=== PATIENT | female | born 1975 | race Caucasian/White ===

== ENCOUNTER 2018-05-11 10:36 | Day surgery (SDC) | payer OTHER ==
[2018-05-09 11:55] VITALS: BMI 45.3
[2018-05-11 10:56] LABS: HEMATOCRIT 37.2 % (32.4-45.2); HEMOGLOBIN 12.5 GM/dL (10.7-15.3); MCH 27.6 pg (25.7-33.7); MCHC 33.7 g/dl (32.0-36.0); MEAN CELL VOLUME 82.1 fl (80-96); MEAN PLT VOLUME 8.6 fl (7.5-11.1); PLATELET COUNT 272 K/MM3 (134-434); RBC 4.54 M/mm3 (3.60-5.2); RDW 14.1 % (11.6-15.6); WHITE BLOOD COUNT 7.1 K/mm3 (4.0-10.0)
[2018-05-11 11:02] LABS: URINE APPEARANCE CLEAR; URINE BILIRUBIN NEGATIVE (NEGATIVE); URINE COLOR YELLOW; URINE GLUCOSE (UA) NEGATIVE (NEGATIVE); URINE KETONE NEGATIVE (NEGATIVE); URINE LEUK ESTERASE NEGATIVE (NEGATIVE); URINE NITRITE NEGATIVE (NEGATIVE); URINE PROTEIN NEGATIVE (NEGATIVE)
[2018-05-11 11:04] LABS: HCG,QUALITATIVE URINE Negative
[2018-05-11 11:27] LABS: ALBUMIN 3.5 g/dl (3.4-5.0); ALK PHOS 97 U/L (45-117); ANION GAP 5 MMOL/L (8-16); BILIRUBIN,TOTAL 0.4 mg/dL (0.2-1); BLOOD UREA NITROGEN 15 mg/dL (7-18); CALCIUM 8.7 mg/dL (8.5-10.1); CHLORIDE 106 mmol/L (98-107); CO2 29 mmol/L (21-32); CREATININE 0.8 mg/dL (0.55-1.3); GLUCOSE,RANDOM 97 mg/dL (74-106); POTASSIUM 4.2 mmol/L (3.5-5.1); SGOT/AST 16 U/L (15-37); SGPT/ALT 37 U/L (13-61); SODIUM 140 mmol/L (136-145); TOT PROT 7.7 g/dl (6.4-8.2)
[2018-05-11 11:39] LABS: INR 0.97 (0.83-1.09); PROTHROMBIN TIME (PATIENT) 11.4 SEC (9.7-13.0)
[2018-05-11] MEDS ORDERED: LIDOCAINE HCL/PF 2% SDV 5ML VIAL ONE ×2 (12:08→12:11)
[2018-05-11] MEDS ORDERED: ceFAZolin SODIUM 1 GM VIAL ONE (12:08)
[2018-05-11] MEDS ORDERED: SODIUM CHLORIDE 0.9% P/F 10 ML VIAL IJ ONE (12:08)
[2018-05-11] MEDS ORDERED: DEXAMETHASONE SOD PHOSPHATE 4 MG/1 ML VIAL ONE (12:08)
[2018-05-11] MEDS ORDERED: MIDAZOLAM HCL 2 MG/2 ML SINGLE DOSE VIAL ONE (12:09)
[2018-05-11] MEDS ORDERED: ROCURONIUM BROMIDE 50 MG/5 ML VIAL ONE (12:09)
[2018-05-11] MEDS ORDERED: PROPOFOL 20 ML ONE (12:09)
--- NOTE | 2018-05-11 12:29 | HP ---
History & Physical Update - History History: No Change - Physical Physical: No Change - Assessment Assessment: No Change - Plan Plan: No Change (no change since visit on 05/05)
[2018-05-11] MEDS ORDERED: NEOSTIGMINE METHYLSULFATE 0.5 MG/ML - 10 ML MDV ONE (13:28)
[2018-05-11] MEDS ORDERED: GLYCOPYRROLATE 0.2 MG/1 ML VIAL ONE (13:28)
[2018-05-11] MEDS ORDERED: KETOROLAC TROMETHAMINE 30 MG/1 ML VIAL ONE (13:34)
[2018-05-11] MEDS ORDERED: PROMETHAZINE HCL 25 MG/1 ML VIAL IVPUSH PRN (13:54)
[2018-05-11] MEDS ORDERED: oxyCODONE HCL 5 MG TABLET PO PRN ×2 (13:54)
[2018-05-11] MEDS ORDERED: ONDANSETRON 4 MG/2 ML VIAL IVPUSH PRN (13:54)
--- NOTE | 2018-05-11 14:19 | OP ---
Operative Note - Note: Operative Date: 05/11/18 Pre-Operative Diagnosis: elective sterlization Operation: laparoscopic bilateral salpingectomy Post-Operative Diagnosis: Same as Pre-op Surgeon: Kobi Hidalgo Trolley Operator: Bria Ziegler Anesthesiologist/HEALTH SAFETY AND ENVIRONMENT MANAGER: Gibran Ayala Anesthesia: General Specimens Removed: left and right fallopian tubes Estimated Blood Loss (mls): 5 Fluid Volume Replaced (mls): 900 Operative Report Dictated: Yes
--- NOTE | 2018-05-11 14:21 | SURG ---
Surgery Cooler Worker Note Cooler Worker: Bria Ziegler PA-C Date of Service: 05/11/18 Diagnosis: elective sterilization Procedure: laparoscopic bilateral salpingectomy I was present for the entirety of the operative procedure. For further detail, please refer to operative report. Visit type - Case Type Case Type: Scheduled - Emergency Emergency Visit: No - New patient This patient is new to me today: Yes Date on this admission: 05/11/18
--- NOTE | 2018-05-11 14:54 | OP ---
DATE OF OPERATION: DATE OF DICTATION: 05/11/2018 PREOPERATIVE DIAGNOSIS: Fertility, multiparity. Desire for sterilization. POSTOPERATIVE DIAGNOSIS: Fertility, multiparity. Desire for sterilization. PROCEDURE: Laparoscopic bilateral salpingectomy for the purpose of sterilization. SURGEON: Rocky Peace MD [employer] MEMBER: SILVIA Dominguez ANESTHESIA: Parth Clay MD, general. PROCEDURE AND FINDINGS: Under general anesthesia in dorsal lithotomy position patient was examined. Uterus was found to be anteverted, about 7 to 8-week size. As it turned out later on, there was low right-sided myoma noted. Adnexa were within normal limits. Vaginal prep and drape was carried out and bladder was emptied with straight catheter. HUMI vaginal manipulator was placed in the uterus. Abdomen was prepped and draped for the laparoscopy. Peritoneal cavity was entered with Veress needle through the lowest point of the umbilicus. Pneumoperitoneum was accomplished with 3.5 L of carbon dioxide. Intraumbilical 5 mm incision was placed and using 5-mm disposable catheter abdomen was entered under direct vision. Above findings were appreciated. Two additional 5-mm trocars were placed on right and left side at the level of the umbilicus. Using grasper right tube was elevated and with the LigaSure device mesosalpinx was divided. Tube was detached from the uterus and parked in the anterior cul-de-sac. The area of excision was thoroughly examined and hemostasis was excellent. The same was repeated on the left side and left tube was resected using LigaSure without any complications. Both tubes were removed directly through the ports and sent for the pathology. Abdomen was reexamined and there was no pathology noted. Gas was allowed to escape from the abdomen and all instruments and ports were removed under direct vision. Incisions were secured with Dermabond. Patient was awakened, extubated and transferred to PACU comfortable and stable. MD HAYDEE VALENCIA/[id number]
[2018-05-11 17:59] VITALS: BP 123/79; PULSE 67; TEMP 98.2
--- NOTE | 2018-05-13 16:54 | PATH ---
Surgical Pathology Report Patient Name: NAVEED CHUNG Med. Rec. #: [id number] /Age/Gender: 1975 (Age: 42) / F Account: [id number] Location: [facility] SURGICAL Taken: 05/11/2018 Received: 05/12/2018 Reported: 05/13/2018 Physicians: Kobi Hidalgo MD Specimen(s) Received BILATERAL FALLOPIAN TUBES Clinical History Voluntary sterilization Final Diagnosis FALLOPIAN TUBES, RIGHT AND LEFT, LAPAROSCOPIC SALPINGECTOMY: TWO (2) FALLOPIAN TUBES WITH PARATUBAL CYSTS (INCLUDING FIMBRIATED END AND FULL LUMINAL PORTION). ONE FALLOPIAN TUBE WITH FOCAL ENDOSALPINGOSIS (FALLOPIAN TUBE 1). Electronically Signed Lora Hsu M.D. Gross Description Received in formalin labeled "right and left fallopian tubes," is a 3.5 cm in length fimbriated fallopian tube which is arbitrarily designated "fallopian tube 1." The outer surface is brown-herrera and smooth with a 0.6 cm in greatest dimension paratubal cyst attached to the fimbria. Sectioning of the fallopian tube reveals an unremarkable lumen. Arbitrarily designated "fallopian tube 2" measures 5 cm in length. The outer surface is brown-herrera and smooth. Sectioning reveals an unremarkable lumen. The fimbria of fallopian tube 2 are separately received within the same container. There is a 1.2 cm in greatest dimension paratubal cyst attached to the fimbria. Boiler Attendant sections are submitted in 4 cassettes as follows: 1-fallopian tube 1 fimbria with paratubal cyst; 2-cross sections of fallopian tube 1; 3-fallopian tube 2 fimbria with paratubal cyst; 4-cross sections of fallopian tube 2. /05/12/2018 saudi05/12/2018
== END 2018-05-11 17:20 | disposition home or self-care (01) ==
LOC: JASU-SURG 10:36
PROVIDERS: ATTEND Specialist
PROC: 0U574ZZ Destruction of Bilateral Fallopian Tubes, Percutaneous Endoscopic Approach (ICD-10-PCS; principal; 2018-05-11 12:00)
DX: Z30.2 Encounter for sterilization (principal)
CPT/HCPCS: 36415; 80053; 81003; 84703; 85027; 85610; 88302-TC; 94760